=== PATIENT | female | born 1985 | race Caucasian/White ===

== ENCOUNTER 2017-03-24 19:44 | Emergency (ER) | payer OTHER ==
[~2017-03-24] VITALS: Ht 170.2 cm; Wt 65.3 kg
[~2017-03-24 19:44] MED LIST: CYCLOBENZAPRINE PO; DIAZ5TAB PO; HYDR-3240 PO; IBUP400T PO; IBUP800T PO; MELO-190 PO; MORP15TA39 PO; ONDA4TAB10 PO; OXYC10TA6 PO; OXYC20TA42 PO; PREN1TAB96
[2017-03-24] MEDS ORDERED: SODIUM CHLORIDE 0.9% 1,000ML IV ONE (20:00)
[2017-03-24] MEDS ORDERED: MORPHINE SULFATE 4 MG/ML, 1ML IVPush PRN (20:00)
[2017-03-24] MEDS ORDERED: ONDANSETRON 2MG/ML, 2ML IVPush ONE (20:00)
[2017-03-24 20:25] LABS: ASPARTATE AMINO TRANSFERASE 18 U/L (15-37); BLOOD UREA NITROGEN 14 mg/dL (7-18)
[2017-03-24] MEDS ORDERED: MORPHINE SULFATE 4 MG/ML, 1ML ONE (20:31)
[2017-03-24] MEDS ORDERED: ONDANSETRON 2MG/ML, 2ML ONE (20:32)
[2017-03-24 21:49] LABS: PATH.CAST-FLAG NOT PRESENT; SPERM-FLAG NOT PRESENT; SRC-FLAG NOT PRESENT; XTAL-FLAG NOT PRESENT; YLC-FLAG NOT PRESENT
[2017-03-24 22:58] VITALS: BP 116/71
== END 2017-03-24 23:01 | disposition home or self-care (01) ==
LOC: ED 22:55
DX: N13.2 Hydronephrosis with renal and ureteral calculous obstruction (principal); F41.1 Generalized anxiety disorder; R31.9 Hematuria, unspecified
CPT/HCPCS: 36415; 51701; 74176; 80053; 81001; 84703; 85025; 87086; 96361; 96374; 96375; 99285; J2405; J7030; P9612

== ENCOUNTER 2017-08-18 05:15 | Inpatient (IN) | payer OTHER ==
[~2017-08-18] VITALS: Ht 172.7 cm; Wt 75.4 kg
[~2017-08-18 05:15] MED LIST changes: +IBUP-1221 PO; +IBUP-1223 PO; -IBUP400T PO; -IBUP800T PO; -MELO-190 PO; +MELO7.5T31 PO; +MORP-52 PO; -MORP15TA39 PO
[2017-08-18] MEDS ORDERED: HYDROmorphone 1 MG/ML, 1ML ONE ×3 (06:21→17:48)
[2017-08-18] MEDS ORDERED: KETOROLAC 30 MG/1 ML ONE ×3 (06:21→17:14)
[2017-08-18] MEDS ORDERED: ONDANSETRON 2MG/ML, 2ML ONE ×2 (06:21→16:59)
[2017-08-18] MEDS: HYDROmorphone 1 MG/ML, 1ML IVPush PRN ×2 (06:25→10:11)
[2017-08-18 06:30] LABS: WHITE BLOOD COUNT 6.8 x10^3/uL (3.4-10)
[2017-08-18] MEDS ORDERED: SODIUM CHLORIDE 0.9% 1,000ML IV ONE (06:30)
[2017-08-18] MEDS ORDERED: KETOROLAC 30 MG/1 ML IVPush ONE (06:30)
[2017-08-18] MEDS ORDERED: SODIUM CHLORIDE FLUSH 10ML SYR IVF ONE (06:30)
[2017-08-18] MEDS ORDERED: ONDANSETRON 2MG/ML, 2ML IVPush ONE (06:30)
[2017-08-18 06:38] LABS: ASPARTATE AMINO TRANSFERASE 20 U/L (15-37); BLOOD UREA NITROGEN 12 mg/dL (7-18)
[2017-08-18] MEDS ORDERED: CEFTRIAXONE PMX 1GM/50ML 50 ML IV ONE (07:00)
[2017-08-18] MEDS ORDERED: CEFTRIAXONE PMX 1GM/50ML 50 ML ONE (09:35)
[2017-08-18] MEDS ORDERED: GUAIFENESIN/DM 200-20MG, 10ML UDC PO PRN (10:30)
[2017-08-18] MEDS ORDERED: ONDANSETRON ODT 4 MG PO PRN (10:30)
[2017-08-18] MEDS ORDERED: LABETALOL 5MG/ML, 20ML IVPush PRN (10:30)
[2017-08-18] MEDS: morphine SULFATE 10 MG/ML, 1ML IVPush PRN ×3 (13:47→21:54)
[2017-08-18 14:31] VITALS: BP 114/72
[2017-08-18] MEDS: SODIUM CHLORIDE 0.9% 1,000 ML IV SCH ×2 (15:00→19:58)
[2017-08-18] MEDS ORDERED: FENTANYL PF 100 MCG/2ML ONE ×3 (16:35→17:29)
[2017-08-18] MEDS ORDERED: MIDAZOLAM 1 MG/ML, 2ML ONE (16:35)
[2017-08-18] MEDS ORDERED: PROPOFOL 10 MG/ML, 20ML ONE (16:36)
[2017-08-18] MEDS ORDERED: ROCURONIUM 10MG/ML,5ML ONE (16:37)
[2017-08-18] MEDS ORDERED: DEXAMETHASONE 4 MG/ML, 1ML ONE ×2 (16:59)
[2017-08-18] MEDS ORDERED: PROMETHAZINE 25 MG/ML, 1ML IV PRN (17:00)
[2017-08-18] MEDS ORDERED: OXYcodone 5 MG/5 ML ORAL.SOL UDC PO PRN (17:00)
[2017-08-18] MEDS ORDERED: MEPERIDINE/PF 25MG/0.5ML IVPush PRN (17:00)
[2017-08-18] MEDS ORDERED: ACETAMINOPHEN 325 MG TABLET PO PRN (17:00)
[2017-08-18] MEDS ORDERED: ONDANSETRON 2MG/ML, 2ML IVPush PRN (17:00)
[2017-08-18] MEDS ORDERED: PROMETHAZINE 25 MG/ML, 1ML ONE (17:29)
[2017-08-18] MEDS ORDERED: OXYcodone 5 MG/5 ML ORAL.SOL UDC ONE (17:29)
[2017-08-18] MEDS: FENTANYL PF 100 MCG/2ML IV PRN ×2 (17:36→17:46)
[2017-08-18] MEDS: HYDROmorphone 1 MG/ML, 1ML IV PRN ×2 (17:50→17:57)
[2017-08-18] MEDS ORDERED: DIPHENHYDRAMINE 50 MG/ML, 1ML ONE (18:07)
[2017-08-18] MEDS ORDERED: DIPHENHYDRAMINE 50 MG/ML, 1ML IVPush ONE (18:30)
[2017-08-18 19:15] VITALS: BP 120/74
[2017-08-18] MEDS: DIPHENHYDRAMINE 25 MG CAPSULE PO PRN (21:57)
[2017-08-18] MEDS: HYDROcodone/APAP 5/325 TABLET PO PRN (22:30)
[2017-08-18 23:27] VITALS: BP 92/51
[2017-08-19] MEDS: ONDANSETRON 2MG/ML, 2ML IVPush PRN ×3 (01:43→16:49)
[2017-08-19] MEDS: HYDROcodone/APAP 5/325 TABLET PO PRN ×5 (02:27→21:00)
[2017-08-19] MEDS: SODIUM CHLORIDE 0.9% 1,000 ML IV SCH ×3 (02:29→22:12)
[2017-08-19 03:20] VITALS: BP 93/54
[2017-08-19] MEDS: morphine SULFATE 10 MG/ML, 1ML IVPush PRN ×4 (03:27→19:55)
[2017-08-19] MEDS: DIPHENHYDRAMINE 25 MG CAPSULE PO PRN ×2 (05:48→16:50)
[2017-08-19 08:05] VITALS: BP 126/68
[2017-08-19] MEDS ORDERED: SENNA/DOCUSATE TABLET PO SCH (09:00)
[2017-08-19] MEDS: CEFTRIAXONE PMX 1GM/50ML 50 ML IV SCH (09:11)
[2017-08-19] MEDS: SENNA/DOCUSATE TABLET PO SCH (09:11)
[2017-08-19 09:55] LABS: HEMATOCRIT 37.3 % (34.6-47.8); HEMOGLOBIN 12.3 g/dL (11.7-16.4); WHITE BLOOD COUNT 9.4 x10^3/uL (3.4-10)
[2017-08-19 10:06] LABS: ASPARTATE AMINO TRANSFERASE 9 U/L (15-37); BLOOD UREA NITROGEN 7 mg/dL (7-18)
[2017-08-19 13:20] VITALS: BP 121/76
[2017-08-19 19:02] VITALS: BP 130/85
[2017-08-20] MEDS: morphine SULFATE 10 MG/ML, 1ML IVPush PRN ×3 (00:19→22:49)
[2017-08-20] MEDS: HYDROcodone/APAP 5/325 TABLET PO PRN ×6 (01:20→23:36)
[2017-08-20] MEDS: DIPHENHYDRAMINE 25 MG CAPSULE PO PRN ×3 (01:20→19:59)
[2017-08-20 03:30] VITALS: BP 98/60
[2017-08-20] MEDS: ONDANSETRON 2MG/ML, 2ML IVPush PRN ×2 (03:30→16:35)
[2017-08-20 05:15] LABS: HEMOGLOBIN 10.7 g/dL (11.7-16.4); WHITE BLOOD COUNT 8.1 x10^3/uL (3.4-10)
[2017-08-20] MEDS: SODIUM CHLORIDE 0.9% 1,000 ML IV SCH ×3 (05:21→22:49)
[2017-08-20] MEDS: POLYETHYLENE GLYCOL 17 GM PACKET PO PRN (05:21)
[2017-08-20 05:27] LABS: BLOOD UREA NITROGEN 7 mg/dL (7-18)
[2017-08-20 05:35] LABS: ASPARTATE AMINO TRANSFERASE 10 U/L (15-37)
[2017-08-20] MEDS: SENNA/DOCUSATE TABLET PO SCH (09:13)
[2017-08-20] MEDS: CEFTRIAXONE PMX 1GM/50ML 50 ML IV SCH (09:13)
[2017-08-20 09:35] VITALS: BP 111/77
[2017-08-20] MEDS ORDERED: MAGNESIUM HYDROXIDE 8%, 30ML UDC PO PRN (13:00)
[2017-08-20 14:40] VITALS: BP 122/84
[2017-08-20 19:08] VITALS: BP 120/79
[2017-08-21] MEDS: ONDANSETRON 2MG/ML, 2ML IVPush PRN (01:14)
[2017-08-21 01:26] VITALS: BP 96/61
[2017-08-21] MEDS: HYDROcodone/APAP 5/325 TABLET PO PRN ×2 (03:44→08:01)
[2017-08-21] MEDS: DIPHENHYDRAMINE 25 MG CAPSULE PO PRN (03:44)
[2017-08-21] MEDS: SODIUM CHLORIDE 0.9% 1,000 ML IV SCH (06:33)
[2017-08-21 07:47] VITALS: BP 110/72
[2017-08-21] MEDS: SENNA/DOCUSATE TABLET PO SCH (08:01)
[2017-08-21] MEDS: POLYETHYLENE GLYCOL 17 GM PACKET PO PRN (08:01)
[2017-08-21] MEDS ORDERED: CEFD300C37 PO (08:14)
[2017-08-21] MEDS ORDERED: HYDR-3240 PO (08:34)
[2017-08-21] MEDS: CEFTRIAXONE PMX 1GM/50ML 50 ML IV SCH (08:37)
[2017-08-21] MEDS ORDERED: ONDA4TAB7 PO (09:26)
== END 2017-08-21 10:17 | disposition home or self-care (01) | DRG 668 ==
LOC: ED 07:12 → EDIP 09:18 → 4NOR 13:16
PROVIDERS: ADMIT Hospitalist; ATTEND Hospitalist
PROC: 0T768DZ Dilation of Right Ureter with Intraluminal Device, Via Natural or Artificial Opening Endoscopic (ICD-10-PCS; 2017-08-18)
PROC: 0TC68ZZ Extirpation of Matter from Right Ureter, Via Natural or Artificial Opening Endoscopic (ICD-10-PCS; principal; 2017-08-18 16:30)
DX: N13.6 Pyonephrosis (principal); E43 Unspecified severe protein-calorie malnutrition; N10 Acute pyelonephritis; D69.6 Thrombocytopenia, unspecified; D64.9 Anemia, unspecified; F41.1 Generalized anxiety disorder; Z80.3 Family history of malignant neoplasm of breast; Z87.442 Personal history of urinary calculi; Z68.25 Body mass index [BMI] 25.0-25.9, adult
CPT/HCPCS: 36415; 74000; 74176; 76000; 76770; 76856; 80053; 81001; 82360; 83735; 84703; 85025; 87040; 87077; 87086; 87186; 88300; 96361; 96365; 96375; 96376; J0696; J1100; J1170; J1885; J2250; J2405; J2550; J2704; J3010; C1769; C2617; J1200; J2270; J7030; Q0163

== ENCOUNTER 2017-10-21 06:45 | Day surgery (SDC) | payer BC, OTHER ==
[~2017-10-21] VITALS: Ht 170.2 cm; Wt 65.5 kg
[~2017-10-21 06:45] MED LIST changes: +CEFD300C37 PO; +ONDA4TAB7 PO
[2017-10-21] MEDS ORDERED: LACTATED RINGERS 1,000 ML IV SCH (07:06)
[2017-10-21 07:10] LABS: HCG UR LOT HCG7030192
[2017-10-21] MEDS ORDERED: MIDAZOLAM 1 MG/ML, 2ML ONE ×2 (07:26→08:38)
[2017-10-21] MEDS ORDERED: FENTANYL PF 100 MCG/2ML ONE ×3 (07:26→09:36)
[2017-10-21] MEDS ORDERED: ROCURONIUM 10 MG/ML,10ML ONE ×2 (07:27→08:38)
[2017-10-21] MEDS ORDERED: PROPOFOL 10 MG/ML, 20ML ONE ×2 (07:28→08:38)
[2017-10-21 07:29] LABS: HCG UR OBC PASS
[2017-10-21] MEDS ORDERED: NEOSTIGMINE 1 MG/ML, 10ML ONE ×2 (07:29→08:38)
[2017-10-21] MEDS ORDERED: GLYCOPYRROLATE 0.4 MG/2 ML, 2ML ONE (07:29)
[2017-10-21 07:33] VITALS: BP 118/78
[2017-10-21] MEDS ORDERED: NONE PER PT (07:33)
[2017-10-21] MEDS ORDERED: BUPIVACAINE/PF 0.25% ONE (07:48)
[2017-10-21] MEDS ORDERED: SCOPOLAMINE PATCH, 1.5MG PATCH.TD72 TD ONE (08:35)
[2017-10-21] MEDS ORDERED: FENTANYL PF 250 MCG/5ML ONE (08:38)
[2017-10-21] MEDS ORDERED: GLYCOPYRROLATE 0.2MG/1ML, 5ML ONE (08:38)
[2017-10-21] MEDS ORDERED: DEXAMETHASONE 4 MG/ML, 1ML ONE (08:38)
[2017-10-21] MEDS ORDERED: KETOROLAC 30 MG/1 ML ONE ×3 (08:38→08:49)
[2017-10-21] MEDS ORDERED: ONDANSETRON 2MG/ML, 2ML ONE ×2 (08:38→09:43)
[2017-10-21] MEDS ORDERED: ACETAMINOPHEN 325 MG TABLET PO PRN (09:00)
[2017-10-21] MEDS ORDERED: PROMETHAZINE 25 MG/ML, 1ML IV PRN (09:00)
[2017-10-21] MEDS ORDERED: ONDANSETRON 2MG/ML, 2ML IVPush PRN (09:00)
[2017-10-21] MEDS ORDERED: MEPERIDINE/PF 25MG/0.5ML IVPush PRN (09:00)
[2017-10-21] MEDS ORDERED: BUPIVACAINE/PF 0.25% INFIL ONE (09:13)
[2017-10-21] MEDS ORDERED: ACETAMINOPHEN 650 MG/20.3 ML UDC ONE (09:36)
[2017-10-21] MEDS ORDERED: OXYcodone 5 MG/5 ML ORAL.SOL UDC ONE ×2 (09:36→10:06)
[2017-10-21] MEDS: FENTANYL PF 100 MCG/2ML IV PRN ×2 (09:38→09:49)
[2017-10-21] MEDS: OXYcodone 5 MG/5 ML ORAL.SOL UDC PO PRN ×2 (09:40→10:07)
[2017-10-21] MEDS ORDERED: HYDROmorphone 1 MG/ML, 1ML ONE (09:54)
[2017-10-21] MEDS: HYDROmorphone 1 MG/ML, 1ML IV PRN ×2 (09:58→10:05)
[2017-10-21] MEDS ORDERED: MEPERIDINE/PF 50 MG/ML ONE (10:08)
[2017-10-21] MEDS ORDERED: DIPHENHYDRAMINE 50 MG/ML, 1ML ONE (10:14)
[2017-10-21] MEDS ORDERED: DIPHENHYDRAMINE 50 MG/ML, 1ML IVPush PRN (10:30)
== END 2017-10-21 13:30 ==
LOC: OUT 06:45 → MERGE 08:30 → OUT 13:30
PROVIDERS: ATTEND Obstetrics & Gynecology
DX: N80.9 Endometriosis, unspecified (principal); K66.0 Peritoneal adhesions (postprocedural) (postinfection); Z98.890 Other specified postprocedural states; Z90.722 Acquired absence of ovaries, bilateral
CPT/HCPCS: 58662; 81025; J1100; J1170; J1200; J1885; J2175; J2250; J2405; J2704; J2710; J3010; J3490; J7120

== ENCOUNTER 2017-12-10 16:20 | Emergency (ER) | payer OTHER ==
[~2017-12-10] VITALS: Ht 170.2 cm; Wt 67.9 kg
[~2017-12-10 16:20] MED LIST changes: +NONE PER PT
[2017-12-10] MEDS ORDERED: ONDA4TAB10 PO (16:40)
[2017-12-10] MEDS ORDERED: SODIUM CHLORIDE FLUSH 10ML SYR IVF ONE (17:00)
[2017-12-10] MEDS ORDERED: SODIUM CHLORIDE 0.9% 1,000ML IVBOLUS ONE (17:00)
[2017-12-10 17:02] LABS: BASOPHILS # (AUTO) 0.05 x10^3/uL (0-0.1); BASOPHILS % (AUTO) 1 % (0-1); EOSINOPHILS # (AUTO) 0.08 x10^3/uL (0-0.4); EOSINOPHILS % (AUTO) 1 % (1-7); LYMPHOCYTES # (AUTO) 2.85 x10^3/uL (1-3.4); LYMPHOCYTES % (AUTO) 41 % (22-44); MD NO; MEAN CORPUSCULAR HEMOGLOBIN 29.8 pg (27.0-34.8); MEAN CORPUSCULAR HGB CONC 33.1 g/dL (32.4-35.8); MEAN CORPUSCULAR VOLUME 90.1 fL (80-100); MEAN PLATELET VOLUME 9.2 fL (7.4-10.4); MONOCYTES % (AUTO) 6 % (2-9); NEUTROPHILS # (AUTO) 3.53 x10^3/uL (1.8-6.8); NEUTROPHILS % (AUTO) 51 % (42-75); PLATELET COUNT 206 x10^3/uL (130-400); RED BLOOD COUNT 4.76 x10^6/uL (3.82-5.3); RED CELL DISTRIBUTION WIDTH 14.1 % (9.6-15.2)
[2017-12-10 17:13] LABS: MICROSCOPIC INDICATED
[2017-12-10 17:14] LABS: ALBUMIN 3.8 g/dL (3.4-5.0); ANION GAP 8 mmol/L (5-15); CALCIUM 8.7 mg/dL (8.5-10.1); CHLORIDE 110 mmol/L (98-107); CREATININE 0.92 mg/dL (0.55-1.02)
[2017-12-10 17:15] LABS: CULTURE INDICATED? YES
[2017-12-10 19:19] VITALS: BP 132/86
== END 2017-12-10 19:21 | disposition home or self-care (01) ==
LOC: ED 16:58
DX: R30.0 Dysuria (principal)
CPT/HCPCS: 36415; 80048; 81001; 82040; 84443; 84703; 85025; 87086; 96360; 99284; J7030

== ENCOUNTER → 2018-01-12 | Outpatient (CLI) | payer OTHER | END | disposition home or self-care (01) | LOC: RAD 21:02 | PROVIDERS: ATTEND Nurse Practitioner Primary Care | DX: M50.823 Other cervical disc disorders at C6-C7 level (principal) | CPT/HCPCS: 72050 ==

== ENCOUNTER → 2018-01-19 | Outpatient (CLI) | payer OTHER | END | disposition home or self-care (01) | LOC: CFH 06:49 | PROVIDERS: ATTEND Nurse Practitioner Primary Care | DX: M50.10 Cervical disc disorder with radiculopathy, unspecified cervical region (principal) | CPT/HCPCS: 72141 ==

== ENCOUNTER → 2018-03-13 | Outpatient (CLI) | payer OTHER | END | disposition home or self-care (01) | LOC: RAD 09:16 | PROVIDERS: ATTEND Nurse Practitioner Primary Care | DX: G54.0 Brachial plexus disorders (principal) | CPT/HCPCS: 71550 ==

== ENCOUNTER 2018-09-08 17:29 | Emergency (ER) | payer OTHER ==
[~2018-09-08] VITALS: Ht 172.7 cm; Wt 63.8 kg
[2018-09-08 18:10] LABS: MICROSCOPIC AUTO
[2018-09-08 18:13] LABS: CULTURE INDICATED? YES
[2018-09-08] MEDS ORDERED: HYDROcodone/APAP 5/325 TABLET ONE (18:33)
[2018-09-08 18:46] VITALS: BP 113/71
[2018-09-08] MEDS ORDERED: HYDROcodone/APAP 5/325 TABLET PO ONE (19:00)
== END 2018-09-08 18:56 | disposition home or self-care (01) ==
LOC: ED 18:50
DX: R10.2 Pelvic and perineal pain (principal); M54.2 Cervicalgia; G89.29 Other chronic pain
CPT/HCPCS: 81001; 81025; 87086; 99284

== ENCOUNTER 2018-09-10 16:56 | Emergency (ER) | payer OTHER ==
[~2018-09-10] VITALS: Ht 172.7 cm; Wt 63.5 kg
[2018-09-10 16:58] VITALS: BP 121/79
[2018-09-10 18:29] LABS: CULTURE INDICATED? NO; MICROSCOPIC AUTO
[2018-09-10] MEDS ORDERED: HYDROcodone/APAP 5/325 TABLET PO ONE (18:30)
[2018-09-10] MEDS ORDERED: HYDROcodone/APAP 5/325 TABLET ONE (18:33)
== END 2018-09-10 19:26 | disposition home or self-care (01) ==
LOC: ED 18:19
DX: R10.2 Pelvic and perineal pain (principal); N34.3 Urethral syndrome, unspecified
CPT/HCPCS: 81001; 99283

== ENCOUNTER → 2018-09-13 | Outpatient (CLI) | payer OTHER | END | disposition home or self-care (01) | LOC: CFH 15:17 | PROVIDERS: ATTEND Physician Assistant | DX: N85.4 Malposition of uterus (principal); N36.8 Other specified disorders of urethra | CPT/HCPCS: 76856 ==

== ENCOUNTER → 2018-10-04 | Outpatient (CLI) | payer OTHER ==
[2018-10-04 08:13] LABS: BASOPHILS # (AUTO) 0.03 x10^3/uL (0-0.1); BASOPHILS % (AUTO) 1 % (0-1); EOSINOPHILS # (AUTO) 0.18 x10^3/uL (0-0.4); EOSINOPHILS % (AUTO) 4 % (1-7); LYMPHOCYTES # (AUTO) 1.23 x10^3/uL (1-3.4); LYMPHOCYTES % (AUTO) 28 % (22-44); MD NO; MEAN CORPUSCULAR HGB CONC 33.1 g/dL (32.4-35.8); MEAN CORPUSCULAR VOLUME 90.6 fL (80-100); MEAN PLATELET VOLUME 8.6 fL (7.4-10.4); MONOCYTES # (AUTO) 0.51 x10^3/uL (0.2-0.8); MONOCYTES % (AUTO) 12 % (2-9); NEUTROPHILS # (AUTO) 2.42 x10^3/uL (1.8-6.8); NEUTROPHILS % (AUTO) 55 % (42-75); PLATELET COUNT 167 x10^3/uL (130-400); RED BLOOD COUNT 4.52 x10^6/uL (3.82-5.3); RED CELL DISTRIBUTION WIDTH 13.6 % (9.6-15.2)
[2018-10-04 08:27] LABS: ALBUMIN 3.8 g/dL (3.4-5.0); ANION GAP 4 mmol/L (5-15); CALCIUM 7.9 mg/dL (8.5-10.1); CHLORIDE 112 mmol/L (98-107); CHOLESTEROL, TOTAL 147 mg/dL (140-239)
[2018-10-04 08:35] LABS: % IRON SATURATION 9 % (20-55); ALANINE AMINOTRANSFERASE 37 U/L (12-78); ALKALINE PHOSPHATASE 64 U/L (45-117); BILIRUBIN,TOTAL 0.4 mg/dL (0.2-1.0); CHOL/HDL RATIO 2.8; CREATININE 0.79 mg/dL (0.55-1.02); HDL CHOL % 35 % (28-40); HDL CHOLESTEROL (DIRECT) 52 mg/dL (40-60); IRON LEVEL 30 mcg/dL (50-170); LDL CHOLESTEROL,CALCULATED 87 mg/dL (54-169); LDL/HDL RATIO 1.7 (0.5-3.0); TOTAL IRON BINDING CAPACITY 323 mcg/dL (250-450); TOTAL PROTEIN 6.9 g/dL (6.4-8.2); TRIGLYCERIDES 38 mg/dL (50-200); VLDL CHOLESTEROL 8 mg/dL (0-25)
== END | disposition home or self-care (01) ==
LOC: LAB 08:00
PROVIDERS: ATTEND Nurse Practitioner Family
DX: Z00.01 Encounter for general adult medical examination with abnormal findings (principal); R53.83 Other fatigue
CPT/HCPCS: 36415; 80053; 80061; 82306; 82728; 83540; 83550; 84443; 85025

== ENCOUNTER → 2019-04-23 | Outpatient (CLI) | payer OTHER | END | disposition home or self-care (01) | LOC: CVU 12:44 | PROVIDERS: ATTEND Internal Medicine Cardiovascular Disease | DX: R00.2 Palpitations (principal) | CPT/HCPCS: 93306 ==

== ENCOUNTER → 2019-04-30 | Outpatient (CLI) | payer OTHER ==
[~2019-04-30] MED LIST changes: +DULO30CA2 PO; +METO25TA35 PO
[2019-04-30 11:10] LABS: MEAN CORPUSCULAR HEMOGLOBIN 30.8 pg (27.0-34.8); MEAN CORPUSCULAR HGB CONC 32.9 g/dL (32.4-35.8); MEAN CORPUSCULAR VOLUME 93.7 fL (80-100); MEAN PLATELET VOLUME 8.6 fL (7.4-10.4); PLATELET COUNT 199 x10^3/uL (130-400); RED BLOOD COUNT 4.59 x10^6/uL (3.82-5.3)
[2019-04-30 11:40] LABS: ALANINE AMINOTRANSFERASE 22 U/L (12-78); ANION GAP 4 mmol/L (5-15); CALCIUM 8.7 mg/dL (8.5-10.1); CHLORIDE 113 mmol/L (98-107); CREATININE 0.81 mg/dL (0.55-1.02)
[2019-04-30 11:41] LABS: ALKALINE PHOSPHATASE 53 U/L (45-117); TOTAL PROTEIN 7.1 g/dL (6.4-8.2)
== END | disposition home or self-care (01) ==
LOC: LAB 10:53
PROVIDERS: ATTEND Obstetrics & Gynecology
DX: R00.2 Palpitations (principal)
CPT/HCPCS: 36415; 80053; 85027

== ENCOUNTER 2019-05-04 16:03 | Emergency (ER) | payer OTHER ==
[~2019-05-04] VITALS: Ht 167.6 cm; Wt 66.4 kg
[~2019-05-04 16:03] MED LIST changes: -DULO30CA2 PO; -METO25TA35 PO
--- NOTE | 2019-05-04 16:22 | NUR ---
Pt wheeled to room with EDT, labs being drawn.
[2019-05-04] MEDS ORDERED: METO25TA35 PO (16:27)
[2019-05-04] MEDS ORDERED: DULO30CA2 PO (16:27)
--- NOTE | 2019-05-04 16:28 | NUR ---
XR at bedside.
--- NOTE | 2019-05-04 16:30 | NUR ---
Kathleen TURCIOS, at bedside to evaluate pt.
[2019-05-04 16:38] LABS: BASOPHILS # (AUTO) 0.03 x10^3/uL (0-0.1); BASOPHILS % (AUTO) 0 % (0-1); EOSINOPHILS # (AUTO) 0.09 x10^3/uL (0-0.4); EOSINOPHILS % (AUTO) 1 % (1-7); LYMPHOCYTES # (AUTO) 3.04 x10^3/uL (1-3.4); LYMPHOCYTES % (AUTO) 39 % (22-44); MD NO; MEAN CORPUSCULAR HEMOGLOBIN 31.2 pg (27.0-34.8); MEAN CORPUSCULAR HGB CONC 33.5 g/dL (32.4-35.8); MEAN CORPUSCULAR VOLUME 93.1 fL (80-100); MEAN PLATELET VOLUME 9.1 fL (7.4-10.4); MONOCYTES # (AUTO) 0.37 x10^3/uL (0.2-0.8); MONOCYTES % (AUTO) 5 % (2-9); NEUTROPHILS # (AUTO) 4.23 x10^3/uL (1.8-6.8); NEUTROPHILS % (AUTO) 55 % (42-75); PLATELET COUNT 214 x10^3/uL (130-400); RED BLOOD COUNT 4.72 x10^6/uL (3.82-5.3); RED CELL DISTRIBUTION WIDTH 13.7 % (9.6-15.2)
[2019-05-04 16:47] LABS: ALANINE AMINOTRANSFERASE 23 U/L (12-78); ALBUMIN 4.3 g/dL (3.4-5.0); ANION GAP 5 mmol/L (5-15); CALCIUM 9.2 mg/dL (8.5-10.1); CHLORIDE 109 mmol/L (98-107)
[2019-05-04 16:59] LABS: ALKALINE PHOSPHATASE 60 U/L (45-117); BILIRUBIN,TOTAL 0.4 mg/dL (0.2-1.0); CREATININE 0.85 mg/dL (0.55-1.02); FREE T4 (FREE THYROXINE) 0.97 ng/dL (0.76-1.46); TOTAL PROTEIN 7.6 g/dL (6.4-8.2)
[2019-05-04] MEDS ORDERED: METOPROLOL TARTRATE 50 MG TABLET PO ONE (17:00)
[2019-05-04] MEDS ORDERED: METOPROLOL TARTRATE 25 MG TABLET ONE (17:22)
--- NOTE | 2019-05-04 17:23 | NUR ---
Pt medicated per MAR.
[2019-05-04 17:56] VITALS: BP 111/65
--- NOTE | 2019-05-04 18:20 | NUR ---
Patient/Caregiver given discharge instructions and they have confirmed that they understand the instructions. Patient ambulatory with steady gait.
== END 2019-05-04 18:22 | disposition home or self-care (01) ==
LOC: ED 17:55
DX: R42 Dizziness and giddiness (principal); R00.0 Tachycardia, unspecified
CPT/HCPCS: 36415; 71045; 80053; 84439; 84443; 84703; 85025; 93005; 99284

== ENCOUNTER 2019-06-14 11:06 | Day surgery (SDC) | payer OTHER ==
[~2019-06-14 11:06] MED LIST changes: +DULO30CA2 PO; +METO25TA35 PO
[2019-06-14] MEDS ORDERED: LIDOCAINE 2%, 20ML ONE (11:35)
== END 2019-06-14 12:22 | disposition home or self-care (01) ==
LOC: CACL 11:06
PROVIDERS: ATTEND Internal Medicine Cardiovascular Disease
DX: I47.9 Paroxysmal tachycardia, unspecified (principal); Z72.89 Other problems related to lifestyle; Z79.899 Other long term (current) drug therapy; Z82.49 Family history of ischemic heart disease and other diseases of the circulatory system
CPT/HCPCS: 33285; C1764

== ENCOUNTER 2019-06-18 05:23 | Emergency (ER) | payer OTHER ==
[~2019-06-18] VITALS: Ht 172.7 cm; Wt 65.5 kg
[2019-06-18 05:28] VITALS: BP 119/73
--- NOTE | 2019-06-18 05:48 | NUR ---
PT RESTING IN [facility] AT THIS TIME; JOSE. PT EDUCATED ON ER PROCESS AND VERBALIZES UNDERSTANDING. AWAITING ERP AT THIS TIME.
[2019-06-18] MEDS ORDERED: LIDOCAINE-MPF 1%, 5ML INFIL ONE (06:00)
[2019-06-18] MEDS ORDERED: DIPH,PERTUSS(ACELL),TET VAC/PF 0.5 ML IM-VACC ONE ×2 (06:00→06:07)
[2019-06-18] MEDS ORDERED: LIDOCAINE-MPF 1%, 5ML ONE (06:25)
--- NOTE | 2019-06-18 06:28 | NUR ---
TAM STARK AT FOR SUTURE REPAIR OF LACERATION.
--- NOTE | 2019-06-18 06:52 | NUR ---
RECEIVED REPORT FROM LINCOLN SKELTON.
[2019-06-18] MEDS ORDERED: NEOSPORIN OINT. PKT 1 PACKET ONE (06:59)
--- NOTE | 2019-06-18 07:03 | NUR ---
RIGHT PINKY TOE DRESSED WITH BACITRACIN DRESSING.
== END 2019-06-18 07:33 | disposition home or self-care (01) ==
LOC: ED 07:25
DX: S91.114A Laceration without foreign body of right lesser toe(s) without damage to nail, initial encounter (principal); G89.11 Acute pain due to trauma; F41.1 Generalized anxiety disorder; X58.XXXA Exposure to other specified factors, initial encounter; Y93.89 Activity, other specified; Y92.098 Other place in other non-institutional residence as the place of occurrence of the external cause; Y99.8 Other external cause status
CPT/HCPCS: 12001; 90471; 90715; 99283

== ENCOUNTER 2019-10-03 20:20 | Emergency (ER) | payer OTHER ==
[~2019-10-03] VITALS: Ht 172.7 cm; Wt 73.3 kg
[2019-10-03 20:31] VITALS: BP 141/81
[2019-10-03 22:12] LABS: BASOPHILS # (AUTO) 0.04 x10^3/uL (0-0.1); BASOPHILS % (AUTO) 1 % (0-1); EOSINOPHILS % (AUTO) 1 % (1-7); LYMPHOCYTES # (AUTO) 2.89 x10^3/uL (1-3.4); LYMPHOCYTES % (AUTO) 34 % (22-44); MD NO; MEAN CORPUSCULAR HGB CONC 33.6 g/dL (32.4-35.8); MEAN CORPUSCULAR VOLUME 92.3 fL (80-100); MEAN PLATELET VOLUME 9.3 fL (7.4-10.4); MONOCYTES # (AUTO) 0.48 x10^3/uL (0.2-0.8); MONOCYTES % (AUTO) 6 % (2-9); NEUTROPHILS # (AUTO) 4.87 x10^3/uL (1.8-6.8); NEUTROPHILS % (AUTO) 58 % (42-75); PLATELET COUNT 171 x10^3/uL (130-400); RED BLOOD COUNT 4.48 x10^6/uL (3.82-5.3); RED CELL DISTRIBUTION WIDTH 13.3 % (9.6-15.2)
[2019-10-03 22:24] LABS: ALANINE AMINOTRANSFERASE 22 U/L (12-78); ALBUMIN 4.1 g/dL (3.4-5.0); ANION GAP 5 mmol/L (5-15); CHLORIDE 110 mmol/L (98-107); CREATININE 0.82 mg/dL (0.55-1.02)
[2019-10-03 22:29] LABS: ALKALINE PHOSPHATASE 56 U/L (45-117); BILIRUBIN,TOTAL 0.5 mg/dL (0.2-1.0); TOTAL PROTEIN 7.6 g/dL (6.4-8.2)
== END 2019-10-03 22:53 ==
LOC: ED 22:47
DX: R00.0 Tachycardia, unspecified (principal); R00.2 Palpitations; M79.10 Myalgia, unspecified site; F41.1 Generalized anxiety disorder; Z90.722 Acquired absence of ovaries, bilateral
CPT/HCPCS: 36415; 80053; 84703; 85025; 93005; 99284

== ENCOUNTER 2019-11-28 10:25 | Outpatient (CLI) | payer OTHER ==
[2019-11-28 10:45] LABS: BASOPHILS # (AUTO) 0.03 x10^3/uL (0-0.1); BASOPHILS % (AUTO) 0 % (0-1); EOSINOPHILS # (AUTO) 0.09 x10^3/uL (0-0.4); EOSINOPHILS % (AUTO) 1 % (1-7); LYMPHOCYTES # (AUTO) 2.26 x10^3/uL (1-3.4); LYMPHOCYTES % (AUTO) 35 % (22-44); MD NO; MEAN CORPUSCULAR HGB CONC 33.1 g/dL (32.4-35.8); MEAN CORPUSCULAR VOLUME 90.5 fL (80-100); MEAN PLATELET VOLUME 8.8 fL (7.4-10.4); MONOCYTES # (AUTO) 0.29 x10^3/uL (0.2-0.8); MONOCYTES % (AUTO) 5 % (2-9); NEUTROPHILS # (AUTO) 3.81 x10^3/uL (1.8-6.8); NEUTROPHILS % (AUTO) 59 % (42-75); PLATELET COUNT 234 x10^3/uL (130-400); RED BLOOD COUNT 4.41 x10^6/uL (3.82-5.3); RED CELL DISTRIBUTION WIDTH 13.2 % (9.6-15.2)
[2019-11-28 10:56] LABS: ALBUMIN 3.6 g/dL (3.4-5.0); ANION GAP 7 mmol/L (5-15); CALCIUM 8.2 mg/dL (8.5-10.1); CHLORIDE 111 mmol/L (98-107); CHOLESTEROL, TOTAL 197 mg/dL (140-239); TRIGLYCERIDES 81 mg/dL (50-200); VLDL CHOLESTEROL 16 mg/dL (0-25)
[2019-11-28 11:05] LABS: % IRON SATURATION 36 % (20-55); ALANINE AMINOTRANSFERASE 57 U/L (12-78); ALKALINE PHOSPHATASE 66 U/L (45-117); BILIRUBIN,TOTAL 0.5 mg/dL (0.2-1.0); CHOL/HDL RATIO 3.9; CREATININE 0.74 mg/dL (0.55-1.02); FREE T4 (FREE THYROXINE) 0.88 ng/dL (0.76-1.46); HDL CHOL % 26 % (28-40); HDL CHOLESTEROL (DIRECT) 51 mg/dL (40-60); IRON LEVEL 121 mcg/dL (50-170); LDL CHOLESTEROL,CALCULATED 130 mg/dL (54-169); LDL/HDL RATIO 2.5 (0.5-3.0); TOTAL IRON BINDING CAPACITY 338 mcg/dL (250-450); TOTAL PROTEIN 7.2 g/dL (6.4-8.2)
== END 2019-11-28 23:59 | disposition home or self-care (01) ==
LOC: LAB 10:25
PROVIDERS: ATTEND Nurse Practitioner Family
DX: D64.9 Anemia, unspecified (principal); R53.83 Other fatigue
CPT/HCPCS: 36415; 80053; 80061; 82306; 83540; 83550; 84439; 84443; 85025

== ENCOUNTER 2020-01-22 17:56 | Emergency (ER) | payer OTHER ==
[~2020-01-22] VITALS: Ht 172.7 cm; Wt 78.0 kg
[2020-01-22] MEDS ORDERED: SODIUM CHLORIDE 0.9% 1,000ML IVBOLUS ONE (18:00)
[2020-01-22] MEDS ORDERED: SODIUM CHLORIDE FLUSH 10ML SYR IVF ONE (18:00)
[2020-01-22] MEDS ORDERED: PLEASE ENTER HEIGHT AND WEIGHT MC SCH (18:30)
[2020-01-22 18:43] LABS: BASOPHILS # (AUTO) 0.04 x10^3/uL (0-0.1); BASOPHILS % (AUTO) 1 % (0-1); EOSINOPHILS # (AUTO) 0.13 x10^3/uL (0-0.4); EOSINOPHILS % (AUTO) 2 % (1-7); LYMPHOCYTES % (AUTO) 36 % (22-44); MD NO; MEAN CORPUSCULAR HEMOGLOBIN 30.6 pg (27.0-34.8); MEAN CORPUSCULAR HGB CONC 33.6 g/dL (32.4-35.8); MEAN PLATELET VOLUME 9.1 fL (7.4-10.4); MONOCYTES # (AUTO) 0.41 x10^3/uL (0.2-0.8); MONOCYTES % (AUTO) 5 % (2-9); NEUTROPHILS % (AUTO) 56 % (42-75); PLATELET COUNT 213 x10^3/uL (130-400); RED BLOOD COUNT 4.82 x10^6/uL (3.82-5.3); RED CELL DISTRIBUTION WIDTH 13.2 % (9.6-15.2)
[2020-01-22 18:48] LABS: ALANINE AMINOTRANSFERASE 22 U/L (12-78); ALBUMIN 3.7 g/dL (3.4-5.0); ANION GAP 7 mmol/L (5-15); CALCIUM 8.8 mg/dL (8.5-10.1); CHLORIDE 106 mmol/L (98-107); CREATININE 0.84 mg/dL (0.55-1.02)
[2020-01-22 18:58] LABS: ALKALINE PHOSPHATASE 59 U/L (45-117); BILIRUBIN,TOTAL 0.4 mg/dL (0.2-1.0)
[2020-01-22 19:00] VITALS: BP 133/83
[2020-01-22] MEDS ORDERED: OMNIPAQUE 350 MG/ML, 100ML BOTTLE ONE (21:28)
== END 2020-01-22 21:56 | disposition home or self-care (01) ==
LOC: ED 21:50
DX: R00.0 Tachycardia, unspecified (principal)
CPT/HCPCS: 36415; 71045; 71275; 80053; 83735; 84443; 85025; 85379; 93005; 99285; J7030; Q9967

== ENCOUNTER 2020-03-04 08:32 | Outpatient (CLI) | payer OTHER ==
[2020-03-04 09:13] LABS: ANION GAP 5 mmol/L (5-15); CALCIUM 9.1 mg/dL (8.5-10.1); CHLORIDE 110 mmol/L (98-107); CREATININE 0.76 mg/dL (0.55-1.02)
== END 2020-03-04 23:59 | disposition home or self-care (01) ==
LOC: LAB 08:32
PROVIDERS: ATTEND Registered Nurse
DX: E55.9 Vitamin D deficiency, unspecified (principal); R00.2 Palpitations
CPT/HCPCS: 36415; 80048; 80162; 82306

== ENCOUNTER 2020-08-08 15:15 | Emergency (ER) | payer OTHER ==
[~2020-08-08] VITALS: Ht 172.7 cm; Wt 81.6 kg
[2020-08-08 15:20] VITALS: BP 135/90
== END 2020-08-08 17:43 | disposition home or self-care (01) ==
LOC: ED 16:30
DX: J20.8 Acute bronchitis due to other specified organisms (principal); B97.89 Other viral agents as the cause of diseases classified elsewhere
CPT/HCPCS: 71045; 99283

== ENCOUNTER → 2020-09-12 | Outpatient (CLI) | payer OTHER | END | disposition home or self-care (01) | LOC: RAD 16:24 | PROVIDERS: ATTEND Physician Assistant Medical | DX: R05 Cough (principal) | CPT/HCPCS: 71046 ==

== ENCOUNTER 2020-10-21 14:55 | Inpatient (IN) | payer OTHER ==
[~2020-10-21] VITALS: Ht 172.7 cm; Wt 81.0 kg
[~2020-10-21 14:55] MED LIST changes: +DEXAMETHASONE 4 MG/ML, 1ML ONE; +ONDANSETRON 2MG/ML, 2ML ONE; +PROPOFOL 10 MG/ML, 20ML ONE; +ROCURONIUM 10MG/ML,5ML ONE; +SUCCINYLCHOLINE 20 MG/ML, 10ML ONE
--- NOTE | 2020-10-21 15:28 | NUR ---
PT CAME IN CO OF LEFT SIDE FLANK PAIN THAT STARTED THIS MORNING. PT DENIES PAINFUL URINATION BUT STATES SHE "MIGHT BE URINATING MORE THAN USUAL". PT RESTING IN [facility]. UA SENT. CONNECTED TO MONITORING EQUIPMENT.
[2020-10-21 15:44] LABS: MICROSCOPIC AUTO
--- NOTE | 2020-10-21 15:56 | NUR ---
US IN WITH PT AT THIS TIME
[2020-10-21] MEDS ORDERED: SODIUM CHLORIDE FLUSH 10ML SYR IVF ONE (16:00)
[2020-10-21] MEDS ORDERED: ONDANSETRON 2MG/ML, 2ML IVPush ONE ×2 (16:00→18:30)
[2020-10-21] MEDS ORDERED: MORPHINE SULFATE 4 MG/ML, 1ML ONE ×2 (16:12→17:20)
[2020-10-21] MEDS ORDERED: ONDANSETRON 2MG/ML, 2ML ONE (16:12)
[2020-10-21] MEDS: MORPHINE SULFATE 4 MG/ML, 1ML IVPush PRN ×2 (16:23→17:22)
--- NOTE | 2020-10-21 16:28 | NUR ---
PT RESTING IN [facility]. MEDICATED PER MAR
[2020-10-21 17:10] LABS: ANION GAP 6 mmol/L (5-15); CALCIUM 8.8 mg/dL (8.5-10.1); CHLORIDE 111 mmol/L (98-107); CREATININE 1.11 mg/dL (0.55-1.02)
[2020-10-21 17:11] LABS: ALANINE AMINOTRANSFERASE 29 U/L (12-78); ALBUMIN 3.4 g/dL (3.4-5.0)
[2020-10-21 17:15] LABS: ALKALINE PHOSPHATASE 74 U/L (45-117); BILIRUBIN,TOTAL 0.2 mg/dL (0.2-1.0); TOTAL PROTEIN 6.8 g/dL (6.4-8.2)
[2020-10-21 17:16] LABS: BASOPHILS % (AUTO) 1 % (0-1); EOSINOPHILS % (AUTO) 1 % (1-7); LYMPHOCYTES % (AUTO) 17 % (22-44); MEAN CORPUSCULAR HEMOGLOBIN 29.4 pg (27.0-34.8); MEAN CORPUSCULAR HGB CONC 32.9 g/dL (32.4-35.8); MEAN PLATELET VOLUME 9.2 fL (7.4-10.4); MONOCYTES % (AUTO) 7 % (2-9); NEUTROPHILS % (AUTO) 74 % (42-75); PLATELET COUNT 195 x10^3/uL (130-400); RED BLOOD COUNT 4.49 x10^6/uL (3.82-5.3); RED CELL DISTRIBUTION WIDTH 14.2 % (9.6-15.2)
[2020-10-21 17:18] LABS: MD NO
--- NOTE | 2020-10-21 17:25 | NUR ---
PT. RESTING ON [facility]. CT AT BEDSIDE TO TRANSPORT FOR CT. MEDICATED FOR 7/10 LEFT FLANK PAIN. NO ADDITIONAL NEEDS AT THIS TIME
[2020-10-21] MEDS ORDERED: CEFTRIAXONE PMX 1GM/50ML 50 ML IVPB ONE (18:30)
[2020-10-21] MEDS ORDERED: HYDROmorphone 1 MG/ML, 1ML INJ IVPush PRN ×2 (18:30→20:30)
[2020-10-21] MEDS ORDERED: SODIUM CHLORIDE 0.9% 1,000ML IVBOLUS ONE (18:30)
[2020-10-21] MEDS ORDERED: HYDROmorphone 1 MG/ML, 1ML INJ ONE (18:54)
[2020-10-21] MEDS ORDERED: CEFTRIAXONE PMX 1GM/50ML 50 ML ONE (19:02)
[2020-10-21] MEDS ORDERED: FENTANYL PF 100 MCG/2ML ONE (19:21)
[2020-10-21] MEDS ORDERED: MIDAZOLAM 1 MG/ML, 2ML ONE (19:21)
[2020-10-21] MEDS ORDERED: BALANCED SALT OPHTH IRRIG SOLN 18ML ONE (19:38)
[2020-10-21] MEDS ORDERED: SCOPOLAMINE 1MG PATCH TD ONE (19:40)
[2020-10-21] MEDS ORDERED: ACETAMINOPHEN 325 MG TABLET PO PRN ×3 (20:00→20:30)
[2020-10-21] MEDS ORDERED: DOCUSATE 100 MG CAPSULE PO PRN (20:00)
[2020-10-21] MEDS ORDERED: HYDROcodone/APAP 5/325 TABLET PO PRN (20:00)
[2020-10-21] MEDS ORDERED: KETOROLAC 30 MG/1 ML IV PRN (20:00)
[2020-10-21] MEDS ORDERED: ONDANSETRON ODT 4 MG PO PRN (20:00)
[2020-10-21] MEDS ORDERED: SODIUM CHLORIDE 0.9% 1,000 ML IV SCH (20:00)
[2020-10-21] MEDS ORDERED: morphine SULFATE 10 MG/ML, 1ML IVPush PRN ×2 (20:00→20:15)
[2020-10-21] MEDS ORDERED: METOPROLOL 1 MG/ML, 5ML IV PRN (20:30)
[2020-10-21] MEDS ORDERED: METHOCARBAMOL 1,000 MG in DEXTROSE 5% 100 ML IV PRN (20:30)
[2020-10-21] MEDS ORDERED: MEPERIDINE/PF 25MG/0.5ML IVPush PRN (20:30)
[2020-10-21] MEDS ORDERED: LORazepam 2 MG/ML, 1ML IVPush PRN (20:30)
[2020-10-21] MEDS ORDERED: OXYcodone 5 MG/5 ML ORAL.SOL UDC PO PRN (20:30)
[2020-10-21] MEDS ORDERED: FENTANYL PF 100 MCG/2ML IV PRN (20:30)
[2020-10-21] MEDS ORDERED: PROMETHAZINE 25 MG/ML, 1ML IVPush PRN (20:30)
[2020-10-21] MEDS ORDERED: ONDANSETRON 2MG/ML, 2ML IVPush PRN (20:30)
[2020-10-21] MEDS ORDERED: PROMETHAZINE 25 MG SUPP PR PRN (20:30)
[2020-10-21] MEDS ORDERED: OXYcodone 5 MG/5 ML ORAL.SOL UDC ONE (20:55)
[2020-10-21] MEDS ORDERED: ACETAMINOPHEN 650 MG/20.3 ML UDC ONE (20:55)
[2020-10-21] MEDS ORDERED: METOPROLOL TARTRATE 25 MG TAB PO SCH ×2 (21:00→21:15)
[2020-10-21] MEDS ORDERED: OMNIPAQUE 350 MG/ML, 50 ML BOTTLE ONE (21:00)
[2020-10-21] MEDS: SODIUM CHLORIDE 0.9% 1,000 ML IV SCH (22:30)
[2020-10-21] MEDS ORDERED: METOPROLOL TARTRATE 25 MG TAB ONE (22:58)
[2020-10-21] MEDS ORDERED: DIGOXIN 0.125 MG TABLET ONE (22:58)
[2020-10-21] MEDS: METOPROLOL TARTRATE 25 MG TAB PO SCH (22:59)
[2020-10-21] MEDS: DIGOXIN 0.125 MG TABLET PO SCH (23:00)
[2020-10-22] VITALS: BP 107/64
[2020-10-22] MEDS: ONDANSETRON ODT 4 MG PO PRN ×2 (01:18→22:54)
[2020-10-22] MEDS: KETOROLAC 30 MG/1 ML IV PRN ×3 (01:18→14:13)
[2020-10-22] MEDS: HYDROcodone/APAP 5/325 TABLET PO PRN ×5 (01:19→21:11)
[2020-10-22 04:00] VITALS: BP 98/63
[2020-10-22] MEDS: SODIUM CHLORIDE 0.9% 1,000 ML IV SCH (05:10)
[2020-10-22 06:03] LABS: BASOPHILS % (AUTO) 0 % (0-1); EOSINOPHILS % (AUTO) 0 % (1-7); LYMPHOCYTES % (AUTO) 4 % (22-44); MEAN CORPUSCULAR HEMOGLOBIN 29.4 pg (27.0-34.8); MEAN CORPUSCULAR HGB CONC 32.9 g/dL (32.4-35.8); MEAN PLATELET VOLUME 9.6 fL (7.4-10.4); MONOCYTES % (AUTO) 2 % (2-9); NEUTROPHILS % (AUTO) 94 % (42-75); PLATELET COUNT 197 x10^3/uL (130-400); RED BLOOD COUNT 4.21 x10^6/uL (3.82-5.3); RED CELL DISTRIBUTION WIDTH 14.4 % (9.6-15.2)
[2020-10-22 06:07] LABS: MD NO
[2020-10-22 06:12] LABS: ANION GAP 6 mmol/L (5-15); CALCIUM 8.3 mg/dL (8.5-10.1); CHLORIDE 112 mmol/L (98-107); CREATININE 0.93 mg/dL (0.55-1.02)
[2020-10-22] MEDS: METOPROLOL TARTRATE 25 MG TAB PO SCH ×2 (07:32→21:10)
[2020-10-22] MEDS: TAMSULOSIN 0.4 MG CAP.ER.24H PO SCH (07:32)
[2020-10-22] MEDS: DULOXETINE 30 MG CAPSULE.DR PO SCH (07:32)
[2020-10-22 07:48] VITALS: BP 96/57
[2020-10-22] MEDS ORDERED: DULOXETINE 30 MG CAPSULE.DR PO SCH (09:00)
[2020-10-22 14:09] VITALS: BP 92/56
[2020-10-22] MEDS ORDERED: OXYBUTYNIN CHLORIDE 5 MG TABLET PO PRN (15:00)
[2020-10-22] MEDS: DOCUSATE 100 MG CAPSULE PO PRN (17:05)
[2020-10-22] MEDS ORDERED: CEFTRIAXONE PMX 1GM/50ML 50 ML IV SCH ×4 (18:30→21:00)
[2020-10-22 19:12] VITALS: BP 95/59
[2020-10-22] MEDS ORDERED: PHENAZOPYRIDINE 200 MG TABLET ONE (19:15)
[2020-10-22] MEDS: OXYBUTYNIN CHLORIDE 5 MG TABLET PO PRN (19:17)
[2020-10-22] MEDS: PHENAZOPYRIDINE 100 MG TABLET PO PRN (19:17)
[2020-10-22] MEDS: DIGOXIN 0.125 MG TABLET PO SCH (21:11)
[2020-10-23] MEDS: KETOROLAC 30 MG/1 ML IV PRN ×4 (01:11→22:23)
[2020-10-23] MEDS: HYDROcodone/APAP 5/325 TABLET PO PRN ×6 (01:11→23:15)
[2020-10-23 03:08] VITALS: BP 97/61
[2020-10-23] MEDS ORDERED: PHENAZOPYRIDINE 200 MG TABLET ONE (05:51)
[2020-10-23] MEDS: OXYBUTYNIN CHLORIDE 5 MG TABLET PO PRN (05:56)
[2020-10-23] MEDS: DOCUSATE 100 MG CAPSULE PO PRN (05:56)
[2020-10-23] MEDS: PHENAZOPYRIDINE 100 MG TABLET PO PRN ×2 (05:57→16:23)
[2020-10-23 06:26] LABS: BASOPHILS % (AUTO) 0 % (0-1); EOSINOPHILS % (AUTO) 0 % (1-7); LYMPHOCYTES % (AUTO) 10 % (22-44); MEAN CORPUSCULAR HEMOGLOBIN 30.4 pg (27.0-34.8); MEAN CORPUSCULAR HGB CONC 33.6 g/dL (32.4-35.8); MEAN PLATELET VOLUME 9.1 fL (7.4-10.4); MONOCYTES % (AUTO) 9 % (2-9); NEUTROPHILS % (AUTO) 80 % (42-75); PLATELET COUNT 145 x10^3/uL (130-400); RED BLOOD COUNT 3.76 x10^6/uL (3.82-5.3); RED CELL DISTRIBUTION WIDTH 14.6 % (9.6-15.2)
[2020-10-23 06:27] LABS: MD NO
[2020-10-23 06:33] LABS: ANION GAP 2 mmol/L (5-15); CALCIUM 7.7 mg/dL (8.5-10.1); CHLORIDE 110 mmol/L (98-107); CREATININE 0.83 mg/dL (0.55-1.02)
[2020-10-23 07:43] VITALS: BP 94/56
[2020-10-23] MEDS: TAMSULOSIN 0.4 MG CAP.ER.24H PO SCH (08:25)
[2020-10-23] MEDS: DULOXETINE 30 MG CAPSULE.DR PO SCH (08:25)
[2020-10-23] MEDS: METOPROLOL TARTRATE 25 MG TAB PO SCH ×2 (08:25→21:17)
[2020-10-23] MEDS ORDERED: POLYETHYLENE GLYCOL 17 GM PACKET PO PRN (09:30)
[2020-10-23] MEDS ORDERED: BISACODYL 10 MG SUPP PR PRN (09:30)
[2020-10-23] MEDS: AMPICILLIN/SULBACTAM 3 GM in SODIUM CHLORIDE 0.9% 100 ML IV SCH ×3 (09:34→22:23)
[2020-10-23] MEDS: SENNA/DOCUSATE TABLET PO SCH (09:45)
[2020-10-23] MEDS: OXYBUTYNIN CHLORIDE 5 MG TABLET PO SCH ×3 (09:45→21:18)
[2020-10-23] MEDS: MAGNESIUM HYDROXIDE 8%, 30ML UDC PO SCH (09:45)
[2020-10-23 12:55] VITALS: BP 89/51
[2020-10-23] MEDS: ONDANSETRON ODT 4 MG PO PRN ×2 (16:23→21:18)
[2020-10-23 18:37] VITALS: BP 117/76
[2020-10-23] MEDS: DIGOXIN 0.125 MG TABLET PO SCH (21:18)
[2020-10-23] MEDS ORDERED: PROMETHAZINE 25 MG SUPP PR PRN (22:00)
[2020-10-24 01:43] VITALS: BP 96/57
[2020-10-24] MEDS: HYDROcodone/APAP 5/325 TABLET PO PRN ×2 (03:45→09:19)
[2020-10-24] MEDS: AMPICILLIN/SULBACTAM 3 GM in SODIUM CHLORIDE 0.9% 100 ML IV SCH ×2 (04:45→09:23)
[2020-10-24] MEDS: KETOROLAC 30 MG/1 ML IV PRN (04:45)
[2020-10-24] MEDS ORDERED: PHENAZOPYRIDINE 200 MG TABLET ONE (04:48)
[2020-10-24] MEDS: PHENAZOPYRIDINE 100 MG TABLET PO PRN (04:51)
[2020-10-24 06:59] VITALS: BP 94/55
[2020-10-24 07:34] LABS: BASOPHILS % (AUTO) 1 % (0-1); EOSINOPHILS % (AUTO) 2 % (1-7); LYMPHOCYTES % (AUTO) 12 % (22-44); MEAN CORPUSCULAR HEMOGLOBIN 30.3 pg (27.0-34.8); MEAN CORPUSCULAR HGB CONC 33.6 g/dL (32.4-35.8); MONOCYTES % (AUTO) 12 % (2-9); NEUTROPHILS % (AUTO) 74 % (42-75); PLATELET COUNT 150 x10^3/uL (130-400); RED CELL DISTRIBUTION WIDTH 14.5 % (9.6-15.2)
[2020-10-24 07:35] LABS: MD NO
[2020-10-24 07:42] LABS: CHLORIDE 109 mmol/L (98-107)
[2020-10-24 07:52] LABS: ANION GAP 5 mmol/L (5-15); CALCIUM 7.8 mg/dL (8.5-10.1); CREATININE 0.61 mg/dL (0.55-1.02)
[2020-10-24] MEDS ORDERED: PROM25SU2 PR (08:58)
[2020-10-24] MEDS ORDERED: OXYB5TAB10 PO (08:58)
[2020-10-24] MEDS ORDERED: AMOX1TAB64 PO (08:58)
[2020-10-24] MEDS ORDERED: DIGO125T85 PO (08:58)
[2020-10-24] MEDS ORDERED: HYDR-3237 PO (08:58)
[2020-10-24] MEDS ORDERED: SENN-190 PO (08:58)
[2020-10-24] MEDS ORDERED: METO25TA35 PO (08:58)
[2020-10-24] MEDS: MAGNESIUM HYDROXIDE 8%, 30ML UDC PO SCH (09:18)
[2020-10-24] MEDS: DULOXETINE 30 MG CAPSULE.DR PO SCH (09:18)
[2020-10-24] MEDS: TAMSULOSIN 0.4 MG CAP.ER.24H PO SCH (09:19)
[2020-10-24] MEDS: SENNA/DOCUSATE TABLET PO SCH (09:19)
[2020-10-24] MEDS: METOPROLOL TARTRATE 25 MG TAB PO SCH (09:20)
[2020-10-24] MEDS: OXYBUTYNIN CHLORIDE 5 MG TABLET PO SCH (09:20)
== END 2020-10-24 10:58 | disposition home or self-care (01) | DRG 661 ==
LOC: OR 18:46 → INTOOBSV 21:43 → EDIP 21:43 → 4NE 21:55 → OBSVTOIN 10-23 11:30 → DCLOUNGE 10-24 10:52
PROVIDERS: ADMIT Family Medicine; ATTEND Family Medicine
PROC: BT1F1ZZ Fluoroscopy of Left Kidney, Ureter and Bladder using Low Osmolar Contrast (ICD-10-PCS; 2020-10-21)
PROC: 0T778DZ Dilation of Left Ureter with Intraluminal Device, Via Natural or Artificial Opening Endoscopic (ICD-10-PCS; principal; 2020-10-21 19:30)
DX: N13.6 Pyonephrosis (principal); F32.9 Major depressive disorder, single episode, unspecified; B95.2 Enterococcus as the cause of diseases classified elsewhere; Z87.442 Personal history of urinary calculi; Z86.79 Personal history of other diseases of the circulatory system; Z87.42 Personal history of other diseases of the female genital tract; Z20.828 Contact with and (suspected) exposure to other viral communicable diseases
CPT/HCPCS: 36415; 74018; 74176; 74420; 76770; 80048; 80053; 80162; 81001; 83605; 84703; 85025; 87040; 87077; 87086; 87186; 87635; G0378; J0295; J0696; J1100; J1170; J1885; J2250; J2405; J2704; J3010; Q0162; Q9967; C1769; C2617; J0330; J2270; J7030

== ENCOUNTER 2020-10-24 18:45 | Inpatient (IN) | payer OTHER ==
[~2020-10-24] VITALS: Ht 172.7 cm; Wt 88.0 kg
[~2020-10-24 18:45] MED LIST changes: +AMOX1TAB64 PO; -DEXAMETHASONE 4 MG/ML, 1ML ONE; +DIGO125T85 PO; +HYDR-3237 PO; -ONDANSETRON 2MG/ML, 2ML ONE; +OXYB5TAB10 PO; +PROM25SU2 PR; -PROPOFOL 10 MG/ML, 20ML ONE; -ROCURONIUM 10MG/ML,5ML ONE; +SENN-190 PO; -SUCCINYLCHOLINE 20 MG/ML, 10ML ONE
[2020-10-24] MEDS ORDERED: SODIUM CHLORIDE FLUSH 10ML SYR IVF ONE (19:30)
[2020-10-24 19:40] LABS: MICROSCOPIC AUTO
--- NOTE | 2020-10-24 20:54 | NUR ---
PT BIB FRIEND VIA POV. PT REPORTS URINARY FREQUENCY, URGENCY, AND PAIN WITH URINATION. PT ALSO REPORTS LOWER QUAD ABD PAIN. PT RESTING IN [facility], MONITORING IN PLACE, FRIEND AT BS, WILL CONTINUE TO MONITOR.
[2020-10-24] MEDS ORDERED: CEFTRIAXONE 1,000 MG IM ONE (21:00)
[2020-10-24] MEDS ORDERED: CEFTRIAXONE PMX 1GM/50ML 50 ML ONE (21:21)
[2020-10-24] MEDS ORDERED: CEFTRIAXONE PMX 1GM/50ML 50 ML IVPB ONE (21:30)
[2020-10-24 21:33] LABS: BASOPHILS % (AUTO) 1 % (0-1); EOSINOPHILS % (AUTO) 1 % (1-7); LYMPHOCYTES % (AUTO) 10 % (22-44); MEAN CORPUSCULAR HEMOGLOBIN 29.1 pg (27.0-34.8); MEAN CORPUSCULAR HGB CONC 32.6 g/dL (32.4-35.8); MEAN PLATELET VOLUME 8.8 fL (7.4-10.4); MONOCYTES % (AUTO) 9 % (2-9); NEUTROPHILS % (AUTO) 79 % (42-75); PLATELET COUNT 191 x10^3/uL (130-400); RED BLOOD COUNT 4.13 x10^6/uL (3.82-5.3); RED CELL DISTRIBUTION WIDTH 14.5 % (9.6-15.2)
[2020-10-24 21:35] LABS: MD NO
[2020-10-24 21:46] LABS: ALANINE AMINOTRANSFERASE 25 U/L (12-78); ALBUMIN 2.7 g/dL (3.4-5.0); ANION GAP 5 mmol/L (5-15); CALCIUM 8.2 mg/dL (8.5-10.1); CHLORIDE 107 mmol/L (98-107); CREATININE 0.69 mg/dL (0.55-1.02)
[2020-10-24 21:50] LABS: ALKALINE PHOSPHATASE 89 U/L (45-117); BILIRUBIN,TOTAL 0.5 mg/dL (0.2-1.0); TOTAL PROTEIN 6.5 g/dL (6.4-8.2)
[2020-10-24 22:57] VITALS: BP 108/73
[2020-10-24] MEDS ORDERED: ACETAMINOPHEN 325 MG TABLET PO PRN (23:00)
[2020-10-24] MEDS ORDERED: CIPROFLOXACIN/PMX 400MG/200ML 200 ML IV SCH (23:00)
[2020-10-24] MEDS ORDERED: ONDANSETRON ODT 4 MG PO PRN (23:00)
[2020-10-24] MEDS: METOPROLOL TARTRATE 25 MG TAB PO SCH (23:00)
[2020-10-24] MEDS ORDERED: BISACODYL 10 MG SUPP PR PRN (23:00)
[2020-10-24] MEDS ORDERED: POLYETHYLENE GLYCOL 17 GM PACKET PO PRN (23:00)
[2020-10-24] MEDS: HEPARIN 5,000 UNITS/ML, 1ML SQ SCH (23:00)
[2020-10-24] MEDS: SODIUM CHLORIDE 0.9% 1,000 ML IV SCH (23:58)
[2020-10-24] MEDS: DIGOXIN 0.125 MG TABLET PO SCH (23:58)
[2020-10-24] MEDS: AMPICILLIN/SULBACTAM 3 GM in SODIUM CHLORIDE 0.9% 100 ML IV SCH (23:58)
[2020-10-24] MEDS: LACTOBACILLUS CHEW TABLET PO SCH (23:58)
[2020-10-25] MEDS: HYDROcodone/APAP 5/325 TABLET PO PRN ×3 (00:14→18:23)
[2020-10-25 01:32] VITALS: BP 105/58
[2020-10-25] MEDS: AMPICILLIN/SULBACTAM 3 GM in SODIUM CHLORIDE 0.9% 100 ML IV SCH ×4 (04:48→23:09)
[2020-10-25] MEDS: HEPARIN 5,000 UNITS/ML, 1ML SQ SCH ×3 (05:48→23:00)
[2020-10-25 06:08] LABS: BASOPHILS % (AUTO) 0 % (0-1); EOSINOPHILS % (AUTO) 2 % (1-7); LYMPHOCYTES % (AUTO) 20 % (22-44); MEAN CORPUSCULAR HEMOGLOBIN 29.6 pg (27.0-34.8); MEAN CORPUSCULAR HGB CONC 33.2 g/dL (32.4-35.8); MEAN PLATELET VOLUME 8.9 fL (7.4-10.4); MONOCYTES % (AUTO) 13 % (2-9); NEUTROPHILS % (AUTO) 66 % (42-75); PLATELET COUNT 178 x10^3/uL (130-400); RED BLOOD COUNT 3.62 x10^6/uL (3.82-5.3); RED CELL DISTRIBUTION WIDTH 14.5 % (9.6-15.2)
[2020-10-25 06:18] LABS: MD NO
[2020-10-25 06:27] LABS: ANION GAP 3 mmol/L (5-15); CALCIUM 7.9 mg/dL (8.5-10.1); CHLORIDE 109 mmol/L (98-107)
[2020-10-25 06:29] LABS: CREATININE 0.54 mg/dL (0.55-1.02)
[2020-10-25 07:27] VITALS: BP 98/63
[2020-10-25] MEDS: DULOXETINE 30 MG CAPSULE.DR PO SCH (09:45)
[2020-10-25] MEDS: SODIUM CHLORIDE 0.9% 1,000 ML IV SCH ×2 (09:45→16:00)
[2020-10-25] MEDS: LACTOBACILLUS CHEW TABLET PO SCH ×3 (09:45→20:38)
[2020-10-25] MEDS: SENNA/DOCUSATE TABLET PO SCH (09:46)
[2020-10-25] MEDS: METOPROLOL TARTRATE 25 MG TAB PO SCH ×2 (09:46→20:38)
[2020-10-25] MEDS: OXYBUTYNIN CHLORIDE 5 MG TABLET PO PRN ×2 (11:28→20:42)
[2020-10-25 13:12] VITALS: BP 100/63
[2020-10-25 19:55] VITALS: BP 108/75
[2020-10-25] MEDS: DIGOXIN 0.125 MG TABLET PO SCH (20:38)
[2020-10-26 02:09] VITALS: BP 90/55
[2020-10-26] MEDS: SODIUM CHLORIDE 0.9% 1,000 ML IV SCH ×2 (05:06→14:00)
[2020-10-26] MEDS: HYDROcodone/APAP 5/325 TABLET PO PRN (05:06)
[2020-10-26] MEDS: AMPICILLIN/SULBACTAM 3 GM in SODIUM CHLORIDE 0.9% 100 ML IV SCH ×2 (05:06→11:23)
[2020-10-26] MEDS: HEPARIN 5,000 UNITS/ML, 1ML SQ SCH ×2 (05:11→15:00)
[2020-10-26 06:27] LABS: BASOPHILS % (AUTO) 0 % (0-1); EOSINOPHILS % (AUTO) 3 % (1-7); LYMPHOCYTES % (AUTO) 20 % (22-44); MEAN CORPUSCULAR HEMOGLOBIN 29.8 pg (27.0-34.8); MEAN CORPUSCULAR HGB CONC 33.3 g/dL (32.4-35.8); MEAN PLATELET VOLUME 8.5 fL (7.4-10.4); MONOCYTES % (AUTO) 8 % (2-9); NEUTROPHILS % (AUTO) 68 % (42-75); PLATELET COUNT 207 x10^3/uL (130-400); RED BLOOD COUNT 3.63 x10^6/uL (3.82-5.3); RED CELL DISTRIBUTION WIDTH 14.5 % (9.6-15.2)
[2020-10-26 06:32] LABS: ANION GAP 5 mmol/L (5-15); CALCIUM 8.2 mg/dL (8.5-10.1); CHLORIDE 112 mmol/L (98-107)
[2020-10-26 06:33] LABS: CREATININE 0.68 mg/dL (0.55-1.02)
[2020-10-26 06:48] LABS: MD NO
[2020-10-26 07:27] VITALS: BP 107/69
[2020-10-26] MEDS: LACTOBACILLUS CHEW TABLET PO SCH (08:25)
[2020-10-26] MEDS: DULOXETINE 30 MG CAPSULE.DR PO SCH (08:25)
[2020-10-26] MEDS: SENNA/DOCUSATE TABLET PO SCH (08:25)
[2020-10-26] MEDS: METOPROLOL TARTRATE 25 MG TAB PO SCH (08:26)
[2020-10-26 14:43] VITALS: BP 136/83
== END 2020-10-26 15:30 | disposition home or self-care (01) | DRG 872 ==
LOC: ED 20:40 → EDIP 22:22 → 4NE 22:50 → DCLOUNGE 10-26 15:24
PROVIDERS: ADMIT Family Medicine; ATTEND Internal Medicine
DX: A41.9 Sepsis, unspecified organism (principal); G89.29 Other chronic pain; M54.2 Cervicalgia; M54.16 Radiculopathy, lumbar region; N30.90 Cystitis, unspecified without hematuria; F32.9 Major depressive disorder, single episode, unspecified; B95.2 Enterococcus as the cause of diseases classified elsewhere; K59.00 Constipation, unspecified; Z87.440 Personal history of urinary (tract) infections; Z72.89 Other problems related to lifestyle; Z87.442 Personal history of urinary calculi; Z79.899 Other long term (current) drug therapy
CPT/HCPCS: 36415; 80048; 80053; 81001; 83605; 84703; 85025; 87040; 87086; 99285; G0378; J0295; Q0162; J7030

== ENCOUNTER 2020-11-13 08:29 | Day surgery (SDC) | payer OTHER ==
[2020-11-10 15:28] LABS: ALANINE AMINOTRANSFERASE 28 U/L (12-78); ALBUMIN 3.8 g/dL (3.4-5.0); ANION GAP 3 mmol/L (5-15); CHLORIDE 110 mmol/L (98-107); CREATININE 0.87 mg/dL (0.55-1.02)
[2020-11-10 15:30] LABS: ALKALINE PHOSPHATASE 95 U/L (45-117); BILIRUBIN,TOTAL 0.7 mg/dL (0.2-1.0); TOTAL PROTEIN 7.8 g/dL (6.4-8.2)
[~2020-11-13] VITALS: Ht 172.7 cm; Wt 78.9 kg
[~2020-11-13 08:29] MED LIST changes: +CHOL10003 PO; +CYCL-259 PO; +ELAG150T PO; +GABA300C PO; +PHENERGAN PO
[2020-11-13 09:07] VITALS: BP 109/76
[2020-11-13] MEDS ORDERED: CHLORHEXIDINE 15 ML UDC ONE (09:12)
[2020-11-13] MEDS ORDERED: CHLORHEXIDINE 15 ML UDC MM ONE (09:30)
[2020-11-13] MEDS ORDERED: LACTATED RINGERS 1,000 ML IV SCH (09:30)
[2020-11-13] MEDS ORDERED: MIDAZOLAM 1 MG/ML, 2ML ONE (09:39)
[2020-11-13] MEDS ORDERED: FENTANYL PF 100 MCG/2ML ONE (09:39)
[2020-11-13] MEDS ORDERED: SCOPOLAMINE 1MG PATCH TD ONE (09:54)
[2020-11-13] MEDS ORDERED: KETOROLAC 30 MG/1 ML ONE (10:12)
[2020-11-13] MEDS ORDERED: PROPOFOL 50 ML ONE (10:20)
[2020-11-13] MEDS ORDERED: HYDROmorphone 1 MG/ML, 1ML INJ IVPush PRN (10:30)
[2020-11-13] MEDS ORDERED: MEPERIDINE/PF 25MG/0.5ML IVPush PRN (10:30)
[2020-11-13] MEDS ORDERED: PROMETHAZINE 25 MG/ML, 1ML IVPush PRN (10:30)
[2020-11-13] MEDS ORDERED: ACETAMINOPHEN 325 MG TABLET PO PRN (10:30)
[2020-11-13] MEDS ORDERED: hydrALAzine 20 MG/ML, 1ML IV PRN (10:30)
[2020-11-13] MEDS ORDERED: LABETALOL 5MG/ML, 20ML IV PRN (10:30)
[2020-11-13] MEDS ORDERED: METHOCARBAMOL 1,000 MG in DEXTROSE 5% 100 ML IV PRN (10:30)
[2020-11-13] MEDS ORDERED: FENTANYL PF 100 MCG/2ML IV PRN (10:30)
[2020-11-13] MEDS ORDERED: LORazepam 2 MG/ML, 1ML IVPush PRN (10:30)
[2020-11-13] MEDS ORDERED: OXYcodone 5 MG/5 ML ORAL.SOL UDC PO PRN (10:30)
[2020-11-13] MEDS ORDERED: ALBUTEROL SULFATE 2.5 MG/3 ML NPPB PRN (10:30)
[2020-11-13] MEDS ORDERED: CEFAZOLIN 1,000 MG ONE (10:52)
[2020-11-13] MEDS ORDERED: DEXAMETHASONE 4 MG/ML, 1ML ONE (10:52)
[2020-11-13] MEDS ORDERED: PROPOFOL 10 MG/ML, 20ML ONE (10:52)
[2020-11-13] MEDS ORDERED: ONDANSETRON 2MG/ML, 2ML ONE (10:52)
[2020-11-13] MEDS ORDERED: ONDANSETRON 2MG/ML, 2ML IV PRN (11:00)
[2020-11-13] MEDS ORDERED: HYDROcodone/APAP 5/325 TABLET PO PRN (11:00)
[2020-11-13] MEDS ORDERED: PHEN-418 PO (12:20)
[2020-11-13] MEDS ORDERED: HYDR-3240 PO (12:21)
== END 2020-11-13 12:50 | disposition home or self-care (01) ==
LOC: OR 08:29
PROVIDERS: ATTEND Urology
DX: N20.1 Calculus of ureter (principal); I10 Essential (primary) hypertension; K21.9 Gastro-esophageal reflux disease without esophagitis; F32.9 Major depressive disorder, single episode, unspecified; Z72.89 Other problems related to lifestyle; Z79.899 Other long term (current) drug therapy; Z91.048 Other nonmedicinal substance allergy status; Z20.828 Contact with and (suspected) exposure to other viral communicable diseases; Z98.890 Other specified postprocedural states
CPT/HCPCS: 36415; 52353; 74018; 80053; 82360; 88300; C1769; J0690; J1100; J1885; J2250; J2405; J2704; J3010; J7120; U0003; 76000

== ENCOUNTER → 2020-12-17 | Outpatient (CLI) | payer OTHER ==
[~2020-12-17] MED LIST changes: -CYCL-259 PO; +CYCL10TA2 PO; +HYDR-1067 PO; -HYDR-3240 PO; +PHEN-418 PO
== END | disposition home or self-care (01) ==
LOC: RAD 15:21
PROVIDERS: ATTEND Physician Assistant
DX: R10.9 Unspecified abdominal pain (principal)
CPT/HCPCS: 76770

== ENCOUNTER → 2021-01-28 | Outpatient (CLI) | payer OTHER ==
[2021-01-28 07:45] LABS: BASOPHILS % (AUTO) 1 % (0-1); EOSINOPHILS % (AUTO) 2 % (1-7); LYMPHOCYTES % (AUTO) 37 % (22-44); MEAN CORPUSCULAR HEMOGLOBIN 29.4 pg (27.0-34.8); MEAN CORPUSCULAR HGB CONC 32.9 g/dL (32.4-35.8); MEAN PLATELET VOLUME 8.7 fL (7.4-10.4); MONOCYTES % (AUTO) 7 % (2-9); NEUTROPHILS % (AUTO) 54 % (42-75); PLATELET COUNT 249 x10^3/uL (130-400); RED BLOOD COUNT 4.59 x10^6/uL (3.82-5.3); RED CELL DISTRIBUTION WIDTH 14.3 % (9.6-15.2)
[2021-01-28 07:46] LABS: MD NO
[2021-01-28 07:56] LABS: ALBUMIN 3.6 g/dL (3.4-5.0); ANION GAP 6 mmol/L (5-15); CALCIUM 8.7 mg/dL (8.5-10.1); CHLORIDE 108 mmol/L (98-107)
[2021-01-28 08:12] LABS: ALANINE AMINOTRANSFERASE 27 U/L (12-78); ALKALINE PHOSPHATASE 82 U/L (45-117); BILIRUBIN,TOTAL 0.4 mg/dL (0.2-1.0); CHOL/HDL RATIO 4.5; CHOLESTEROL, TOTAL 195 mg/dL (140-239); CREATININE 0.83 mg/dL (0.55-1.02); HDL CHOL % 22 % (28-40); HDL CHOLESTEROL (DIRECT) 43 mg/dL (40-60); LDL CHOLESTEROL,CALCULATED 122 mg/dL (54-169); LDL/HDL RATIO 2.8 (0.5-3.0); TOTAL PROTEIN 7.5 g/dL (6.4-8.2); TRIGLYCERIDES 148 mg/dL (50-200); VLDL CHOLESTEROL 30 mg/dL (0-25)
== END | disposition home or self-care (01) ==
LOC: LAB 07:31
PROVIDERS: ATTEND Registered Nurse
DX: R53.83 Other fatigue (principal); R00.0 Tachycardia, unspecified; E55.9 Vitamin D deficiency, unspecified; D64.9 Anemia, unspecified
CPT/HCPCS: 36415; 80053; 80061; 80162; 82306; 84436; 84443; 84481; 85025

== ENCOUNTER → 2021-04-21 | Outpatient (CLI) | payer OTHER ==
[~2021-04-21] MED LIST changes: -HYDR-1067 PO; +HYDR-2214 PO
[2021-04-21 12:11] LABS: MICROSCOPIC AUTO
== END | disposition home or self-care (01) ==
LOC: LAB 11:52
PROVIDERS: ATTEND Obstetrics & Gynecology
DX: R30.0 Dysuria (principal)
CPT/HCPCS: 81001; 87086